=== PATIENT | female | born 1985 | race African-American/Black ===

== ENCOUNTER 2017-05-28 17:51 | Emergency (ER) | payer BC ==
[~2017-05-28] VITALS: Ht 162.6 cm; Wt 66.7 kg
[~2017-05-28 17:51] MED LIST: ACETAMINOPHEN500 M1 PO; AMOXICILLIN500 M1 PO; APAP/CODEINE ELI5 M1 OR; APAP500; BACTRIM DS TAB1 EACH PO; BENADRYL25 MG PO; CIPROFLOXACIN500 M1 PO; CITRATE OF MAG296 ML PO; CLINDAMYCIN HC150 MG PO; COLACE100 MG PO; DERMOPLAST SPRA56 ML TOP; FLONASE 0.05%50 MCG NASAL; HYDROCODON-ACE1 EAC7 PO; HYDROCODONE-AP1 EAC6 PO; HYDROCORTISONE120 M1 TOP; HYDROCORTISONE30 G9 TOP; HYDROXYZINE HCL10 M1 PO; IBUPROFEN 600600 M1 PO; IBUPROFEN 800800 M1 OR; IBUPROFEN 800800 M1 PO; IRON325 PO; KEFLEX500 MG PO; LANOLIN56 GM TOP; MACROBID 100 M100 M2 PO; MACROBID 100 M100 M3 PO; MAPAP500 MG PO; MEDROLDOSEPACK PO; MUCINEX TA600 MG/TA1 PO; NAPROSYN500 MG PO; NOHOMEMEDICATIONS; NORCO 5-325 TA1 EACH PO; NORFLEX100 MG PO; NYQUIL D COLD295 ML PO; PERCOCET 5-3251 EACH PO; PHENERGAN 25 MG25 M1 PO; PRENATA CHEWAB1 EACH PO; PRENATAL COMPL1 EACH PO; TAMSULOSIN HCL0.4 MG PO; TIZANIDINE HCL4 MG PO; TUCKS1 EAC1 TOP; TYLENOL COLD M1 EACH; VITAFOL-OB+DHA1 EACH PO; ZOFRAN ODT4 MG PO; ZPAK PO
[2017-05-28 17:53] VITALS: BP 106/76
[2017-05-28] MEDS ORDERED: IBUPROFEN 800800 M1 PO ×2 (18:04→18:55)
[2017-05-28 18:07] LABS: URINE BILIRUBIN NEGATIVE (Negative); URINE BLOOD 1+ (Negative); URINE CLARITY CLEAR; URINE COLOR YELLOW; URINE GLUCOSE-RANDOM* NEGATIVE (Negative); URINE KETONES NEGATIVE (Negative); URINE LEUKOCYTES-REFLEX NEGATIVE (Negative); URINE NITRITE-REFLEX NEGATIVE (Negative); URINE PROTEIN (DIPSTICK) NEGATIVE (Negative); URINE SPECIFIC GRAVITY 1.015 (1.005-1.035); URINE UROBILINOGEN 0.2 E.U./dl (0.2-1.0)
[2017-05-28 18:11] LABS: BACTERIA-REFLEX None Seen /HPF (None Seen); CASTS None Seen /LPF (None Seen); CRYSTALS None Seen /LPF (None Seen); SQUAMOUS 0-3 Few /LPF (0-3); URINE RBC 0-2 Rare /HPF (0-2); URINE WBC-REFLEX 0-5 Rare /HPF (0-5)
[2017-05-28 18:30] LABS: BASOPHILS 0.9 % (0.0-2.0); HEMATOCRIT 40.7 % (37.0-47.0); HEMOGLOBIN 13.3 gm/dL (12.0-15.0); MCH 27.6 pg (26.0-34.0); MCHC 32.7 g/dL (28.0-37.0); MCV 84.5 fL (80.0-100.0); MONOCYTES 5.9 % (1.0-8.0); PLATELET COUNT 302 thou/uL (150-400); POLYS 37.2 % (36.0-66.0); RBC 4.82 mil/uL (4.20-5.00); RDW 13.1 % (10.5-14.5); WBC 5.4 thou/uL (4.0-11.0)
[2017-05-28 18:36] LABS: CALCIUM 9.1 mg/dL (8.5-10.1); CREATININE 0.6 mg/dL (0.6-1.0); POTASSIUM 3.9 mmol/L (3.5-5.1)
== END 2017-05-28 19:19 | disposition home or self-care (01) ==
LOC: ER 17:51
PROVIDERS: Emergency Medicine
DX: N92.0 Excessive and frequent menstruation with regular cycle (principal); Z88.1 Allergy status to other antibiotic agents

== ENCOUNTER 2018-02-23 12:32 | Emergency (ER) | payer BC ==
[~2018-02-23] VITALS: Ht 162.6 cm; Wt 67.1 kg
[2018-02-23 13:04] LABS: URINE BILIRUBIN NEGATIVE (Negative); URINE BLOOD NEGATIVE (Negative); URINE CLARITY CLEAR; URINE COLOR YELLOW; URINE GLUCOSE-RANDOM* NEGATIVE (Negative); URINE KETONES NEGATIVE (Negative); URINE LEUKOCYTES-REFLEX NEGATIVE (Negative); URINE NITRITE-REFLEX NEGATIVE (Negative); URINE PROTEIN (DIPSTICK) NEGATIVE (Negative); URINE SPECIFIC GRAVITY 1.015 (1.005-1.035)
[2018-02-23 13:16] LABS: ABSOLUTE NEUTROPHILS 2.2 thou/uL (1.4-8.2); BASOPHILS 0.9 % (0.0-2.0); HEMATOCRIT 38.3 % (37.0-47.0); HEMOGLOBIN 12.8 gm/dL (12.0-15.0); MCH 27.9 pg (26.0-34.0); MCHC 33.3 g/dL (28.0-37.0); MCV 83.9 fL (80.0-100.0); PLATELET COUNT 317 thou/uL (150-400); POLYS 46.1 % (36.0-66.0); RBC 4.56 mil/uL (4.20-5.00); RDW 13.5 % (10.5-14.5); WBC 4.7 thou/uL (4.0-11.0)
[2018-02-23 13:19] LABS: CALCIUM 8.6 mg/dL (8.5-10.1); CREATININE 0.7 mg/dL (0.6-1.0); POTASSIUM 3.9 mmol/L (3.5-5.1)
[2018-02-23 13:24] LABS: ALBUMIN 3.5 g/dL (3.4-5.0); DIRECT BILIRUBIN 0.2 mg/dL (<0.1-0.3); TOTAL BILIRUBIN 0.5 mg/dL (<0.1-1.0); TOTAL PROTEIN 7.4 g/dL (6.4-8.2)
[2018-02-23] MEDS ORDERED: FLAGYL500 MG PO (14:01)
[2018-02-23 14:06] VITALS: BP 101/66
== END 2018-02-23 14:07 | disposition home or self-care (01) ==
LOC: ER 12:32
PROVIDERS: Emergency Medicine
DX: N76.0 Acute vaginitis (principal); B96.89 Other specified bacterial agents as the cause of diseases classified elsewhere; Z87.442 Personal history of urinary calculi; Z88.1 Allergy status to other antibiotic agents

== ENCOUNTER 2018-04-05 16:19 | Emergency (ER) | payer BC ==
[~2018-04-05] VITALS: Ht 162.6 cm; Wt 67.1 kg
[~2018-04-05 16:19] MED LIST changes: +FLAGYL500 MG PO
[2018-04-05 18:03] LABS: CALCIUM 8.6 mg/dL (8.5-10.1); CREATININE 0.6 mg/dL (0.6-1.0); POTASSIUM 3.8 mmol/L (3.5-5.1)
[2018-04-05] MEDS ORDERED: KEFLEX500 M1 PO (18:11)
[2018-04-05] MEDS ORDERED: FLEXERIL PO (18:11)
[2018-04-05 18:42] VITALS: BP 101/66
== END 2018-04-05 18:43 | disposition home or self-care (01) ==
LOC: ER 16:19
PROVIDERS: Physician Assistant
DX: L03.115 Cellulitis of right lower limb (principal); M79.18 Myalgia, other site; Z88.1 Allergy status to other antibiotic agents; Z87.442 Personal history of urinary calculi

== ENCOUNTER 2018-11-16 17:26 | Emergency (ER) | payer BC ==
[~2018-11-16] VITALS: Ht 162.6 cm; Wt 68.5 kg
[~2018-11-16 17:26] MED LIST changes: +FLEXERIL PO; +KEFLEX500 M1 PO
[2018-11-16] MEDS ORDERED: ROBAXIN 750 MG750 MG PO (17:30)
[2018-11-16] MEDS ORDERED: FLEXERIL PO (17:31)
[2018-11-16] MEDS ORDERED: NAPROSYN500 MG PO (19:26)
[2018-11-16] MEDS ORDERED: NORCO 5-325 TA1 EAC1 PO (19:27)
[2018-11-16 19:36] VITALS: BP 116/73
== END 2018-11-16 19:37 | disposition home or self-care (01) ==
LOC: ER 17:26
DX: S42.019A Nondisplaced fracture of sternal end of unspecified clavicle, initial encounter for closed fracture (principal); Z87.442 Personal history of urinary calculi; Z88.1 Allergy status to other antibiotic agents; V89.2XXA Person injured in unspecified motor-vehicle accident, traffic, initial encounter; Y92.89 Other specified places as the place of occurrence of the external cause; Y93.89 Activity, other specified; Y99.8 Other external cause status